=== PATIENT | male | born 1960 | race Two or more races ===

== ENCOUNTER 2024-10-04 09:05 | Emergency (ER) | payer OTHER ==
[~2024-10-04] VITALS: Ht 190.5 cm; Wt 97.5 kg
[2024-10-04] MEDS ORDERED: ROSUVASTATIN CA10 MG (09:12)
[2024-10-04] MEDS ORDERED: CHILDREN'S ASPI81 MG (09:12)
[2024-10-04] MEDS ORDERED: MONTELUKAST SODI4 M1 (09:12)
[2024-10-04] MEDS ORDERED: ZYRTEC10 M3 (09:12)
[2024-10-04] MEDS ORDERED: KETO10TA2 PO (09:35)
[2024-10-04] MEDS ORDERED: AVIDOXY100 MG PO (09:35)
[2024-10-04] MEDS ORDERED: PEPCID AC20 MG PO (09:35)
== END 2024-10-04 09:49 | disposition home or self-care (01) ==
LOC: ER 09:13
DX: L02.91 Cutaneous abscess, unspecified (principal)

== ENCOUNTER 2024-10-05 13:55 | Outpatient (CLI) | payer OTHER ==
[~2024-10-05 13:55] MED LIST: AVIDOXY100 MG PO; CHILDREN'S ASPI81 MG; KETO10TA2 PO; MONTELUKAST SODI4 M1; PEPCID AC20 MG PO; ROSUVASTATIN CA10 MG; ZYRTEC10 M3
== END 2024-10-05 14:01 | disposition home or self-care (01) ==
LOC: LAB 13:55
PROVIDERS: ATTEND Specialist
DX: L02.91 Cutaneous abscess, unspecified (principal)